=== PATIENT | male | born 2000 | race Caucasian/White ===

== ENCOUNTER 2019-02-02 21:56 | Emergency (ER) | payer BC ==
[2019-02-02] MEDS ORDERED: Erythromycin Base 0.5% Ophth Oint 1 GM Tube EYEBOTH ONE (22:17)
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
[2019-02-02] MEDS ORDERED: Acetaminophen/HYDROcodone 325-5 MG Tab PO ONE (22:33)
== END 2019-02-02 22:45 | disposition home or self-care (01) ==
LOC: MW.ED 21:56
DX: T26.42XA Burn of left eye and adnexa, part unspecified, initial encounter (principal); T26.41XA Burn of right eye and adnexa, part unspecified, initial encounter; S05.01XA Injury of conjunctiva and corneal abrasion without foreign body, right eye, initial encounter; X58.XXXA Exposure to other specified factors, initial encounter
CPT/HCPCS: 99283; A9270; 99282

== ENCOUNTER 2024-04-06 18:21 | Emergency (ER) | payer SELFPAY ==
[2024-04-06] MEDS: Acetaminophen 500 MG Tab PO ONE (19:04)
[2024-04-06] MEDS: Ibuprofen 400 MG Tab PO ONE (19:04)
[2024-04-06] MEDS: Bacitracin Oint 1 GM U/D Packet TOP ONE (19:04)
[2024-04-06] MEDS: Diphtheria,Pertussis(Acell),Tetanus Vaccine 0.5 ML Syringe IM ONE (19:05)
== END 2024-04-06 20:12 | disposition home or self-care (01) ==
LOC: MW.ED 18:21
DX: S90.32XA Contusion of left foot, initial encounter (principal); Z23 Encounter for immunization; W20.8XXA Other cause of strike by thrown, projected or falling object, initial encounter
CPT/HCPCS: 11740; 73630; 90471; 90715; 99283; A9270

== ENCOUNTER 2025-04-24 19:49 | Emergency (ER) | payer SELFPAY | END 2025-04-24 20:31 | disposition home or self-care (01) | LOC: MW.ED 19:49 | DX: S61.412A Laceration without foreign body of left hand, initial encounter (principal); W26.8XXA Contact with other sharp object(s), not elsewhere classified, initial encounter | CPT/HCPCS: 12001; 99282; J2003 ==